=== PATIENT | female | born 1990 | race Caucasian/White ===

== ENCOUNTER 2018-08-03 19:51 | Emergency (ER) | payer SELFPAY ==
[2018-08-03 20:09] VITALS: BP 118/85
[2018-08-03] MEDS ORDERED: Ondansetron ODT TAB* 4 MG PO ONE ×2 (20:44→21:54)
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
[2018-08-03] MEDS ORDERED: Ibuprofen TAB* 600 MG PO ONE (21:54)
== END 2018-08-03 22:04 | disposition home or self-care (01) ==
LOC: UCEAST 19:51
DX: S06.0X0A Concussion without loss of consciousness, initial encounter (principal); W50.1XXA Accidental kick by another person, initial encounter; Y92.89 Other specified places as the place of occurrence of the external cause; Y99.0 Civilian activity done for income or pay
CPT/HCPCS: 70450; 72125; 99203; A9270-GY; G0463

== ENCOUNTER 2019-05-15 21:38 | Emergency (ER) | payer OTHER ==
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
[2019-05-15] MEDS ORDERED: ELETRIPTAN 20 MG PO ONE (21:55)
[2019-05-15] MEDS ORDERED: Ondansetron ODT TAB* 4 MG SL ONE (21:56)
[2019-05-15] MEDS ORDERED: SUMAtriptan TAB* 50 MG PO ONE (22:04)
[2019-05-16] VITALS: BP 116/71
== END 2019-05-15 23:50 | disposition home or self-care (01) ==
LOC: ED 21:38
DX: R68.84 Jaw pain (principal); Y04.2XXA Assault by strike against or bumped into by another person, initial encounter; Y93.F9 Activity, other caregiving; Y92.099 Unspecified place in other non-institutional residence as the place of occurrence of the external cause; Y99.0 Civilian activity done for income or pay; Z79.899 Other long term (current) drug therapy; Z88.8 Allergy status to other drugs, medicaments and biological substances
CPT/HCPCS: 70486; 99281; A9270-GY

== ENCOUNTER 2019-06-15 15:00 | Emergency (ER) | payer OTHER ==
[2019-06-15 15:35] VITALS: BP 106/66
[2019-06-15] MEDS ORDERED: Ibuprofen TAB* 600 MG PO ONE (16:59)
--- NOTE | 2019-06-15 17:00 | UC ---
Shoulder Pain HPI - HPI Summary HPI Summary: The patient is a 28-year-old female who injured her right shoulder today at work. This occurred during restraint training. During the training her right shoulder popped. She had immediate onset of right shoulder pain as well as numbness and tingling down her right arm. She denies any prior history of right shoulder injury. She states that if she attempts to lift her arm her entire arm feels numb. She has no neck pain. She is right hand dominant. She states that she is unable to perform her job and what she can do restraints. She has not yet taken anything for pain. - History of Current Complaint Chief Complaint: UCUpperExtremity Stated Complaint: RT SHOULDER INJURY Time Seen by Provider: 06/15/19 16:45 Hx Obtained From: Patient Hx Last Menstrual Period: 05/24/19 Onset/Duration: Sudden Onset, Lasting Hours Timing: Constant Severity Initially: Severe Severity Currently: Moderate Location Of Pain: Is Diffuse Pain Intensity: 5 Pain Scale Used: 0-10 Numeric Character: Dull, Aching, Throbbing Aggravating Factor(s): Movement, Internal Rotation, Abduction Alleviating Factor(s): Rest Associated Signs And Symptoms: Positive: Numbness/Tingling - intermittent Related History: Occupational Injury, Dominant Hand Right Torso: 1 - pain - Allergies/Home Medications Allergies/Adverse Reactions: Allergies Allergy/AdvReac Type Severity Reaction Status Date / Time rizatriptan [From Maxal] Allergy Shortness Verified 06/15/19 15:35 of Breath PMH/Surg Hx/FS Hx/Imm Hx Previously Healthy: Yes Neurological History: Migraine - Surgical History Surgical History: Yes Surgery Procedure, Year, and Place: R wrist surgery 2007 - Family History Known Family History: Positive: Non-Contributory - Social History Alcohol Use: Occasionally Substance Use Type: None Smoking Status (MU): Never Smoked Tobacco - Immunization History Most Recent Tetanus Shot: 2010 Review of Systems All Other Systems Reviewed And Are Negative: Yes Constitutional: Positive: Negative Skin: Positive: Negative Eyes: Positive: Negative ENT: Positive: Negative Respiratory: Positive: Negative Cardiovascular: Positive: Negative Gastrointestinal: Positive: Negative Genitourinary: Positive: Negative Motor: Positive: Negative Musculoskeletal: Positive: Arthralgia - R shoulder, Decreased ROM - right shoulder Neurological: Positive: Negative Psychological: Positive: Negative Physical Exam Vital Signs: Initial Vital Signs Temp 98.6 F 06/15/19 15:31 Pulse 76 06/15/19 15:31 Resp 16 06/15/19 15:31 BP 106/66 06/15/19 15:31 Pulse Ox 100 06/15/19 15:31 Diagnostics - Radiology No standard instances Radiology Interpretation Completed By: Radiologist Summary of Radiographic Findings: neg Shoulder Course/Dx - Differential Dx/Diagnosis Provider Diagnosis: Right shoulder injury Discharge ED - Sign-Out/Discharge Documenting (check all that apply): Patient Departure All imaging exams completed and their final reports reviewed: Yes - Discharge Plan Condition: Stable Disposition: HOME Patient Education Materials: Shoulder Pain (ED) Forms: *Work Release Referrals: Zahida Scott MD [Medical Doctor] - As Soon As Possible Additional Instructions: xr normal you may have injured your rotator cuff\ sling ice twice daily - Billing Disposition and Condition Condition: STABLE Disposition: Home
== END 2019-06-15 17:18 | disposition home or self-care (01) ==
LOC: UCEAST 15:00
DX: S49.91XA Unspecified injury of right shoulder and upper arm, initial encounter (principal); Z88.8 Allergy status to other drugs, medicaments and biological substances; X50.0XXA Overexertion from strenuous movement or load, initial encounter; Y93.89 Activity, other specified; Y92.9 Unspecified place or not applicable
CPT/HCPCS: 99213; A9270-GY; G0463